=== PATIENT | female | born 1975 | race Caucasian/White ===

== ENCOUNTER 2023-11-11 00:42 | Inpatient (IN) ==
[2023-11-11 01:34] LABS: Albumin Globulin Ratio 1.1 (0.9-2); Albumin Level 3.1 gm/dl (3.4-5.0); BUN Creatinine Ratio 8.2 (10-20); Bilirubin,Total 0.7 mg/dl (0.2-1.0); Calcium 7.6 mg/dl (8.6-10.3); Creatinine Clr Calc Pharmacy 41.2 ml/min; Est GFR (Non-African American) 25.8 ml/min; Globulin 2.7 gm/dl (2.5-4.0); Potassium 3.9 mmol/L (3.5-5.1); Total Protein 5.8 gm/dl (6.0-8.3)
[2023-11-11 01:40] LABS: Troponin I High Sensitivity 20.4 pg/ml (0-14)
[2023-11-11 01:42] LABS: Hematocrit (blood only) 40.7 % (37.0-47.0); Hemoglobin 13.8 g/dl (12.0-16.0); Mean Corpuscular Hemoglobin 28.6 pg (25.0-34.0); Mean Corpuscular Hgb Conc 33.9 g/dL (32.0-36.0); Mean Corpuscular Volume 84.3 fL (80.0-100.0); Mean Platelet Volume 11.4 fL (9.4-12.4); Platelet Count 125 K/uL (130-400); RDW Coefficient of Variation 13.4 % (11.5-14.5); RDW Standard Deviation 41.4 fL (36.4-46.3); Red Blood Count 4.83 M/uL (4.20-5.40); White Blood Count 7.02 K/ul (4.8-10.8)
[2023-11-11 01:43] LABS: Basophils # (auto) 0.01 K/uL (0.00-0.20); Basophils % (auto) 0.1 %; Echinocytes 1+; Eosinophils # (auto) 0.01 K/uL (0.00-0.50); Eosinophils % (auto) 0.1 %; Immature Granulocytes # (auto) 0.04 K/uL (0.01-0.20); Immature Granulocytes % (auto) 0.6 %; Lymphocytes # (auto) 0.47 K/uL (1.20-3.40); Lymphocytes % (auto) 6.7 %; Monocytes # (auto) 1.01 K/uL (0.11-0.59); Monocytes % (auto) 14.4 %; Neutrophils # (auto) 5.48 K/uL (1.40-6.50); Neutrophils % (auto) 78.1 %; Toxic Vacuolation 1+
[2023-11-11 01:48] LABS: INR 1.1 (0.9-1.1); Partial Thromboplastin Ratio 1.3; Partial Thromboplastin Time 38 Seconds (21-31); Prothrombin Time 12.2 Seconds (9.0-12.0)
[2023-11-11] MEDS: FUROSEMIDE 40 MG/4 ML VIAL IV ONE (02:03)
[2023-11-11] MEDS: fentaNYL citrate PF 100 MCG/2 ML VIAL IV STA (02:38)
[2023-11-11] MEDS: MIDAZOLAM HCL 5 MG/ML 1 ML VIAL IV STA ×2 (02:38→03:59)
[2023-11-11] MEDS ORDERED: MIDAZOLAM HCL 5 MG/ML 2ML VIAL IV STA (02:52)
--- NOTE | 2023-11-11 02:52 | History & Physical Report ---
Date of Service November 11, 2023 Assessment & Plan (1) Admitted to intensive care unit: (2) Septic shock: (3) Acute hypotension: (4) Hepatitis B: (5) Renal insufficiency: (6) Acute respiratory failure with hypoxia and hypercapnia: (7) Endotracheally intubated: (8) NSTEMI (non-ST elevated myocardial infarction): (9) Hyponatremia: (10) Bilateral pneumonia: (11) Pulmonary edema: (12) Tobacco use disorder: Plan Acute respiratory failure with hypoxia and hypercapnia/septic shock due to likely pulmonary source- Admitted to intensive care unit after failure of BiPAP Endotracheal intubated in the ED due to respiratory failure Started on Levophed infusion due to hypotension, and given albumin 50 g IV x 1 Status post 1200 mL of IV fluids prehospital and in the ED due to hypotension Combination of bilateral pneumonia, possibly aspiration, with fluid overload Follow all cultures and sensitivities, including urine and blood ABG ordered and pending, follow serially Consult intensive care team Bilateral pneumonia- Place in on Zyvox 600 mg IV every 12 hours and Zosyn 4.5 g IV every 8 hours in the setting of renal insufficiency DuoNebs every 2 hours as needed Renal insufficiency- Creatinine 2.20 with unknown baseline Received 1200 mL of IV fluids prehospital and in hospital Likely an element of decreased perfusion secondary to hypotension Follow labs serially NSTEMI/fluid overload- Troponin 20.4 on admission, with no acute findings on EKG Follow-up troponins serially Order complete echocardiogram monitor for arrhythmias Status post furosemide 40 mg IV x 1 in the ED Hyponatremia- Sodium 123 Looks to be more related to fluid overload Check serum and urine osmolality Follow serially Tobacco use disorder- Significant usage as noted by during phone conversation with ED History of Present Illness Chief Complaint: The patient presented to the emergency department with ongoing shortness of breath over the past days to weeks, was noted to be worsening by staff, and presented to the ED for assessment. Primary Care Provider: NO PCP The patient is a 48-year-old female with unknown past medical history including hepatitis B, recent weight loss, and significant tobacco use disorder, who presents to the emergency department with worsening shortness of breath, dyspnea exertion and cough. She was noted to be hypotensive, and was given a liter of IV fluids, with improved blood pressures. In the emergency department she was initially noted to be septic appearing, was placed on BiPAP, given 200 mL of additional fluids, and the patient subsequently became hypotensive, hypoxic, and required emergent intubation. Chest x-ray shows significant bilateral infiltrates, with possible underlying malignancy, and fluid overload. Pressure emergency department did drop to 71/50, and after receiving initial dosing of Levophed infusion, systolic blood pressure was maintained in the low 100s Past Med/Surg History Medical History (Updated 11/11/23 @ 03:38 by Neeraj Michael MD) Tobacco use disorder Hepatitis B Social History Smoking Status: Current every day smoker Tobacco Type: Cigarettes Feels Safe at Home: Yes Review of Systems Review of Systems: Review of systems and HPI not obtainable due to current medical state Physical Exam Physical Exam: The patient is sedated and intubated, well developed and well nourished, normocephalic and atraumatic, HEENT--PERRL, EOMI, mucous membranes and oropharynx dry. Neck--supple. No JVD. No bruits. Thyroid normal, trachea midline, no adenopathy. Heart--normal S1 and S2. No murmurs, rubs or gallops. Lungs--coarse breath sounds with crackles at the bases to senior living up bilaterally, worse on the left. Abdomen--normal bowel sounds and soft. Nontender. Nondistended, no hernias or masses, no organomegaly. Extremities--no cyanosis or clubbing. No edema. Dermatologic--normal skin turgor, normal color, no abnormal lymph nodes, no rash. Neurologic--cranial nerves II through XII grossly intact. Rheumatologic--normal range of motion. Psychiatric--normal affect. Results & Data Results & Data Vital Signs (Past 12 Hours) Vital Signs Temp Pulse Pulse Resp BP BP Pulse Ox 11/11/23 02:21 90 28 H 211/144 H 88 L 11/11/23 01:43 88 35 H 96 11/11/23 01:32 84 24 124/95 96 11/11/23 01:20 88 24 105/75 92 11/11/23 00:51 88 24 86/59 L 11/11/23 00:51 86 L 11/11/23 00:51 11/11/23 00:51 94 11/11/23 00:51 36.4 C L 84 24 86/59 L 94 O2 Del Method O2 Flow Rate FiO2 11/11/23 02:21 BiPAP 11/11/23 01:43 50 11/11/23 01:32 BiPAP 11/11/23 01:20 Nasal Cannula 5 11/11/23 00:51 11/11/23 00:51 Room Air 11/11/23 00:51 Nasal Cannula 5 11/11/23 00:51 Nasal Cannula 5 11/11/23 00:51 Nasal Cannula 5 Laboratory Results Laboratory Results WBC 7.02 K/ul (4.8-10.8) 11/11/23 00:57 RBC 4.83 M/uL (4.20-5.40) 11/11/23 00:57 Hgb 13.8 g/dl (12.0-16.0) 11/11/23 00:57 POC Hgb 15.3 g/dl (12.0-16.0) 11/11/23 03:08 Hct 40.7 % (37.0-47.0) 11/11/23 00:57 POC Hct 45 % (37-47) 11/11/23 03:08 MCV 84.3 fL (80.0-100.0) 11/11/23 00:57 MCH 28.6 pg (25.0-34.0) 11/11/23 00:57 MCHC 33.9 g/dL (32.0-36.0) 11/11/23 00:57 RDW Std Deviation 41.4 fL (36.4-46.3) 11/11/23 00:57 RDW Coeff of Keesha 13.4 % (11.5-14.5) 11/11/23 00:57 Plt Count 125 K/uL (130-400) L 11/11/23 00:57 MPV 11.4 fL (9.4-12.4) 11/11/23 00:57 Immature Gran % (Auto) 0.6 % 11/11/23 00:57 Neut % (Auto) 78.1 % 11/11/23 00:57 Lymph % (Auto) 6.7 % 11/11/23 00:57 Carlton % (Auto) 14.4 % 11/11/23 00:57 Eos % (Auto) 0.1 % 11/11/23 00:57 Baso % (Auto) 0.1 % 11/11/23 00:57 Neut # (Auto) 5.48 K/uL (1.40-6.50) 11/11/23 00:57 Lymph # (Auto) 0.47 K/uL (1.20-3.40) L 11/11/23 00:57 Carlton # (Auto) 1.01 K/uL (0.11-0.59) H 11/11/23 00:57 Eos # (Auto) 0.01 K/uL (0.00-0.50) 11/11/23 00:57 Baso # (Auto) 0.01 K/uL (0.00-0.20) 11/11/23 00:57 Immature Gran # (Auto) 0.04 K/uL (0.01-0.20) 11/11/23 00:57 Toxic Vacuolation 1+ 11/11/23 00:57 Echinocytes 1+ 11/11/23 00:57 PT 12.2 Seconds (9.0-12.0) H 11/11/23 00:57 INR 1.1 (0.9-1.1) 11/11/23 00:57 APTT 38 Seconds (21-31) H 11/11/23 00:57 PTT Ratio 1.3 11/11/23 00:57 POC pH 7.20 (7.35-7.45) L 11/11/23 03:08 POC pCO2 61 mmHg (35-46) H 11/11/23 03:08 POC pO2 91 mmHg (80-95) 11/11/23 03:08 POC HCO3 24 faustino/L (19-24) 11/11/23 03:08 POC Total CO2 26 mmol/L (24-31) 11/11/23 03:08 POC Base Excess -4.0 faustino/L (-9-1.8) 11/11/23 03:08 POC ABG O2 Sat 95.0 % (90-95) 11/11/23 03:08 POC Sodium 123 mmol/L (135-144) L 11/11/23 03:08 Sodium 123 mmol/L (136-145) L 11/11/23 00:57 POC Potassium 4.6 mmol/L (3.3-5.0) 11/11/23 03:08 Potassium 3.9 mmol/L (3.5-5.1) 11/11/23 00:57 Chloride 89 mmol/L (98-107) L 11/11/23 00:57 Carbon Dioxide 24 mmol/L (21-32) 11/11/23 00:57 Anion Gap 10 (3-11) 11/11/23 00:57 BUN 18 mg/dl (6-23) 11/11/23 00:57 Creatinine 2.20 mg/dl (0.6-1.2) H 11/11/23 00:57 Est Cr Clr Drug Dosing 41.2 ml/min 11/11/23 00:57 Est GFR ( Amer) 30.0 ml/min 11/11/23 00:57 Est GFR (Non-Af Amer) 25.8 ml/min 11/11/23 00:57 BUN/Creatinine Ratio 8.2 (10-20) L 11/11/23 00:57 Glucose 110 mg/dl (70-99(Fasting)) H 11/11/23 00:57 Calcium 7.6 mg/dl (8.6-10.3) L 11/11/23 00:57 Total Bilirubin 0.7 mg/dl (0.2-1.0) 11/11/23 00:57 AST 36 U/L (13-39) 11/11/23 00:57 ALT 21 U/L (7-52) 11/11/23 00:57 Alkaline Phosphatase 41 U/L (34-104) 11/11/23 00:57 Troponin I High Sens 20.4 pg/ml (0-14) H 11/11/23 00:57 Total Protein 5.8 gm/dl (6.0-8.3) L 11/11/23 00:57 Albumin 3.1 gm/dl (3.4-5.0) L 11/11/23 00:57 Globulin 2.7 gm/dl (2.5-4.0) 11/11/23 00:57 Albumin/Globulin Ratio 1.1 (0.9-2) 11/11/23 00:57 Lipase 6 U/L (11-82) L 11/11/23 00:57 Code Status & VTE Plan Code Status Full code VTE Prophylaxis Plan VTE Prophylaxis will be ordered: Yes Critical Care Time 50 minutes PG Care Time/CCT Total # of Minutes Spent Total Time Spent with Patient: Total time spent is greater than 50% in coordination of care (as documented) at patient's floor/unit and/or counseling patient: Coding Level of Care Code 30387 INT INP/OBS CARE 3MIN Diagnoses Admitted to intensive care unit Z78.9 Septic shock A41.9; R65.21 Acute hypotension I95.9 Hepatitis B B19.10 Renal insufficiency N28.9 Acute respiratory failure with hypoxia and hypercapnia J96.01; J96.02 Endotracheally intubated Z97.8 NSTEMI (non-ST elevated myocardial infarction) I21.4 Hyponatremia E87.1 Bilateral pneumonia J18.9 Pulmonary edema J81.1 Tobacco use disorder F17.200
[2023-11-11] MEDS ORDERED: STAT IV Infusion **Titration per Protocol STA ×4 (02:54→08:01)
[2023-11-11] MEDS: NOREPINEPHRINE/D5W 4 MG/250 ML IV ONE (02:59)
[2023-11-11] MEDS: NOREPINEPHRINE/D5W 4 MG/250 ML PLCT IV SCH (03:00)
[2023-11-11] MEDS ORDERED: MIDAZOLAM BOLUS FROM BAG IV PRN (03:11)
[2023-11-11 03:21] LABS: iSTAT Arterial Blood Gas HCO3 24 meg/L (19-24); iSTAT Arterial Blood Gas pCO2 61 mmHg (35-46); iSTAT Arterial Blood Gas pO2 91 mmHg (80-95); iSTAT Carbon Dioxide 26 mmol/L (24-31); iSTAT Hematocrit 45 % (37-47); iSTAT Hemoglobin 15.3 g/dl (12.0-16.0); iSTAT Potassium 4.6 mmol/L (3.3-5.0); iSTAT Sodium 123 mmol/L (135-144)
[2023-11-11] MEDS: fentaNYL citrate 2,500 MCG/250 ML BAG IV SCH (03:32)
[2023-11-11] MEDS: fentaNYL BOLUS from BAG IV PRN (03:39)
--- NOTE | 2023-11-11 03:46 | Billing Data ---
Date of Service November 11, 2023 Coding Level of Care Code 66040 CRITICAL CARE
[2023-11-11 04:11] LABS: Appearance Urine Cloudy (Clear); Bilirubin Urine Negative (Negative); Blood Urine 3+ (Negative); Color Urine Dark Yellow; Glucose Urine UA Negative (Negative); Ketones Urine Negative (Negative); Leukocyte Esterase Urine Negative (Negative); Nitrite Urine Negative (Negative); Protein Urine 2+ (Negative); Specific Gravity Urine 1.012 (1.000-1.030); Urobilinogen Urine Negative (Negative)
[2023-11-11 04:31] LABS: Creatinine Urine Random 80.8 mg/dl
[2023-11-11 04:32] LABS: Amphetamines+Metham, Urine Neg (Neg); Barbiturates, Urine Neg (Neg); Benzodiazepine, Urine Neg (Neg); Cocaine, Urine Neg (Neg); MDMA (Ecstacy), Urine Neg (Neg); Marijuana, Urine Neg (Neg); Methadone, Urine Neg (Neg); Opiate, Urine Neg (Neg); Phencyclidine, Urine Neg (Neg)
[2023-11-11] MEDS ORDERED: ALBUT/IPRATROP 3MG/0.5MG NEB 3 ML VIAL NEB PRN (04:38)
[2023-11-11] MEDS ORDERED: ONDANSETRON INJ 2 MG/ML 2 ML VIAL IV PRN (04:38)
[2023-11-11] MEDS: OPTIRAY 320 125ml IV ONE (04:52)
[2023-11-11] MEDS: MIDAZOLAM HCL 125 MG/250 ML BAG IV SCH (04:55)
[2023-11-11 04:56] LABS: Adenovirus PCR Not Detected (NotDetected); Bordetella parapertussis PCR Not Detected (NotDetected); Bordetella pertussis PCR Not Detected (NotDetected); Chlamydia pneumoniae PCR Not Detected (NotDetected); Coronavirus 229E PCR Not Detected (NotDetected); Coronavirus CoV-2 (COVID19)PCR Not Detected (NotDetected); Coronavirus HKU1 PCR Not Detected (NotDetected); Coronavirus NL63 PCR Not Detected (NotDetected); Coronavirus OC43PCR Not Detected (NotDetected); Human Metapneumovirus PCR Not Detected (NotDetected); Influenza A (H1 2009) PCR DETECTED (NotDetected); Influenza B PCR Not Detected (NotDetected); Mycoplasma pneumoniae PCR Not Detected (NotDetected); Parainfluenza Virus 1 PCR Not Detected (NotDetected); Parainfluenza Virus 2 PCR Not Detected (NotDetected); Parainfluenza Virus 3 PCR Not Detected (NotDetected); Parainfluenza Virus 4 PCR Not Detected (NotDetected); Respiratory Syncytial VirusPCR Not Detected (NotDetected); Rhinovirus/Enterovirus PCR Not Detected (NotDetected)
[2023-11-11 05:06] LABS: Epithelial Cell Urine Auto 0-5 /lpf (0-5); RBC Urine Automated 0-4 /hpf (0-4)
[2023-11-11 05:07] LABS: Amorphous Sediment Urine Present (None Prsent); Bacteria Urine Automated 1+ (Negative)
--- NOTE | 2023-11-11 06:33 | Emergency Department Note ---
Impression & Plan Respiratory failure, Acute non-ST elevation myocardial infarction (NSTEMI), YAHAIRA (acute kidney injury), Acute hyponatremia, Pneumonia Admit to the ICU ED Provider Note NAME: MARIA ANTONIA SAAB AGE: 48 SEX: Female INFORMANT: Patient ED PROVIDER(S): Francia Sung DO CHIEF COMPLAINT: Chest pain PLAN: Disposition: Admit to the ICU MEDICAL DECISION MAKING: This is a 48-year-old female patient with a history of extensive mental health issues who presents to the emergency department from the [facility] with chest pain. She denies any cardiac history. She presented to EMS with significant hypotension and was bolused with IV normal saline solution which brought her blood pressure up upon arrival here in the emergency department. After being here for just a short period of time, the patient became hypoxic with what sounded like audible rails. She became quite anxious. She was placed on BiPAP at that time which she tolerated well. O2 saturations were stable and blood pressure remained acceptable. Laboratory studies revealed a significantly low white blood cell count 1.7. H&H were stable. Sodium was low at 122. BUN of 26 and creatinine of 2.1. We have no previous labs to compare to. Glucose was 209. Troponin was elevated at 46. Patient was ordered to have [employer] testing performed. Unfortunately, the patient's respiratory status began to decline and she became quite anxious. O2 saturations were low on the BiPAP and the decision was made to intubate. Patient received RSI with etomidate and succinylcholine and easily intubated. O2 saturations postprocedure were 100%. Postintubation x-ray showed the tube was at the pauly and required it to be pulled back slightly. The case has been discussed with the ICU team and the [facility]. Because of high acuity throughout the entire emergency department, the ICU providers and [facility] took over care of this patient. Care/management discussed with: [facility] and staff from the ICU as well as the patient's by phone Triage Nursing notes: reviewed and agree with them. Vital Signs: reviewed and remarkable for hypoxia Additional History obtained from: Patient's who I spoke with on the phone Differential Diagnosis: Cardiac ischemia, STEMI, NSTEMI, congestive heart failure, pneumonia, overdose, medication side effect Diagnostics, independently interpreted by me: ECG: Normal sinus rhythm at a rate of [address] segment elevation or signs of ischemia. There is no ectopy. QTc is 456 ms. Cardiac Monitoring: Normal sinus rhythm at 88 Imaging studies: Portable chest x-ray: As per my independent interpretation- multiple airspace opacities with significant pulmonary vascular congestion. There are also possible lesions noted about the lungs concerning for malignancy. Postintubation x-ray: Airspace opacities present with the endotracheal tube at the pauly. The tube was pulled back by 3 cm. HPI: 48 year old Female arrives for evaluation of chest pain. Patient is on a 302 at the [facility]. According to EMS and the patient, she has been having chest pain intermittently for the past couple of days which got much worse tonight. Upon EMS arrival at their facility, the patient was noted to be significantly hypotensive with blood pressures in the 60s and 70s systolically. They administered a bolus of IV normal saline solution-700 and mL which brought her blood pressure up to 107 systolically. Patient stated that the chest pain actually felt better. PAST MEDICAL HISTORY: Tobacco abuse, delusional thought disorder, chronic back pain, significant weight loss according to the SOCIAL HISTORY: Patient lives in [place] with her , he describes that she smokes 2 cartons of cigarettes per week HOME MEDICATIONS: See list ALLERGIES: See list VITALS: See Below PHYSICAL EXAMINATION: HEENT: Head - normocephalic and atraumatic. Pupils are equal, round, and reactive to light. Extraocular eye muscles are intact, and sclera are anicteric. Nose - moist nasal mucosa without discharge. Mouth -extremely dry buccal mucosa. Oropharynx is nonerythematous and there is no tonsillar exudate or edema noted. Neck: Supple; no obvious JVD. Heart: Regular rate and rhythm. There is a normal S1 and S2 with no murmurs, clicks, or gallops appreciated. Lungs: Clear to auscultation bilaterally with no wheezes, rales, or rhonchi. Abdomen: Soft, completely nontender, nondistended, with good bowel sounds. There are no palpable pulsatile masses or hepatosplenomegaly. There is no guarding, rigidity, or rebound noted. Extremities: No evidence of cyanosis, clubbing, or edema. There are easily palpable peripheral pulses. Skin: Cool, pale, and diaphoretic with good turgor and no rashes. PROCEDURES: Endotracheal Intubation Indication: Respiratory failure. The patient was on 100% oxygen via NRB prior to the procedure. Suction, airway equipment, RSI drugs, respiratory equipment, and appropriate personnel were prepared prior to the initiation of the procedure. A time out was taken. Induction was performed with etomidate and succinylcholine. After observing the clinical benefit of the medications, the airway was easily visualized utilizing a glide scope. A 7.5 size ETT tube was placed atraumatically to 25 cm using standard technique. The cuff inflated without signs of malfunction. There were bilateral breath sounds, positive colormetric change, no gastric sounds, and post procedure pulse oximetry was 100% %. Post intubation sedation was administered using Versed and fentanyl. There were no complications. Emergency department course: The patient was evaluated in room C-1. A complete history and physical was performed. Report was received from EMS. Laboratory studies were drawn as above. An order was placed for continuous cardiac monitoring. Patient was in a normal sinus rhythm at a rate of 88. A twelve- lead EKG was obtained. Portable chest x-ray was performed. The patient began to have significant respiratory distress and hypoxia. She was placed on BiPAP which she tolerated well. Patient seemed more comfortable and was resting. I reviewed laboratory studies with the patient. Unfortunately, the patient became more hypoxic on the BiPAP and the decision was made to intubate her. I discussed the case with the patient's to review what her wishes might be as well as with the patient and they both agreed to place her on a ventilator. The patient continued to sound significantly fluid overloaded after receiving the 700 mL bolus of saline prehospital so she was given a dose of IV Lasix. RSI and endotracheal intubation were performed. Patient tolerated this procedure well. Postintubation films showed that the endotracheal tube needed to be pulled back and it was. Patient was able to be oxygenated. Postintubation sedation was performed using Versed and fentanyl as I was wary of the patient's previous episodes of hypotension. I discussed the case with the ICU team as well as Dr. Kitchen. I kept the patient's abreast of the situation. I have personally spent greater than 130 minutes of critical care time in the direct management of this patient. This includes bedside care, interpretation of diagnostic studies, and testing, discussion with consultants, patient, and family members, and other required patient management activities. This 130 minutes is in excess of all separately billable procedures. Past Med/Surg History Medical History (Updated 11/13/23 @ 14:25 by Francia Sung DO) Tobacco use disorder Hepatitis B Social History Smoking Status: Current every day smoker Tobacco Type: Cigarettes Cigarettes Per Day: 1 PPD; Current Living Situation: Other Current Living Situation Comment: [place] Feels Safe at Home: Yes Allergies Allergies Allergy/AdvReac Type Severity Reaction Status Date / Time egg Allergy Mild Rash Verified 11/11/23 06:45 erythromycin base Allergy Unknown Unknown Verified 11/11/23 05:11 turkey AdvReac Unknown Verified 11/11/23 06:46 Home Meds Home Medications Medication Instructions Recorded Confirmed albuterol sulfate 90 mcg/actuation 2 puff inhalation Q6H PRN 11/11/23 11/11/23 aerosol inhaler Shortness Of Breath Or Wheezing amoxicillin 875 mg-potassium 1 tab PO BID 11/11/23 11/11/23 clavulanate 125 mg tablet baclofen 10 mg tablet 10 mg PO DAILY PRN Stiff Muscles 11/11/23 11/11/23 calcium carbonate 1,000 mg PO TID PRN gastric 11/11/23 11/11/23 distress cholecalciferol (vitamin D3) 25 50 mcg PO QAM 11/11/23 11/11/23 mcg (1,000 unit) tablet dextromethorphan-guaifenesin 10 10 ml PO BID 11/11/23 11/11/23 mg-100 mg/5 mL oral syrup furosemide 20 mg tablet 0 mg PO QAM edema 11/11/23 11/11/23 haloperidol 10 mg tablet 10 mg PO BID PRN Psychosis 11/11/23 11/11/23 haloperidol 5 mg tablet See Rx Instructions .Route .COMPLEX 11/11/23 11/11/23 metoprolol succinate 25 mg 50 mg PO QAM HTN 11/11/23 11/11/23 tablet,extended release 24 hr naproxen 500 mg tablet 500 mg PO BID PRN Pain 11/11/23 11/11/23 nicotine (polacrilex) 2 mg gum 4 mg buccal 6XD PRN Smoking 11/11/23 11/11/23 Cessation oxcarbazepine 150 mg tablet See Rx Instructions .Route .COMPLEX 11/11/23 11/11/23 (Trileptal) oxcarbazepine 300 mg tablet See Rx Instructions .Route 11/11/23 11/11/23 (Trileptal) .COMPLEX mood potassium chloride 10 mEq 20 meq PO QAM For Lasix Use 11/11/23 11/11/23 tablet,extended release pseudoephedrine HCl 30 mg tablet 60 mg PO BID PRN Congestion 11/11/23 11/11/23 (Sudafed) sennosides 8.6 mg tablet (Senokot) 8.6 mg PO DAILY PRN Constipation 11/11/23 11/11/23 Results & Data (ED) Vital Signs Vital Signs - 24 hr 11/11/23 00:50 11/11/23 00:51 11/11/23 00:51 Temperature 36.4 C L Temperature Source Oral Pulse Rate 84 84 Pulse Rate [Apical] Pulse Rhythm [Apical] Pulse Strength [Apical] Respiratory Rate 24 Respiratory Effort / Characteristics Labored Respiratory Depth Normal Respiratory Pattern Regular Blood Pressure 86/59 L Blood Pressure [Right Arm] Blood Pressure Mean 68 Blood Pressure Mean [Right Arm] Pulse Oximetry 94 94 Oxygen Delivery Method Nasal Cannula Nasal Cannula Oxygen Flow Rate 5 5 Fraction of Inspired Oxygen Sepsis Recent Fever Within 48 Hours No Sepsis New/Unexplained Change in Mental Status No Sepsis Action Taken by Nursing Physician Notified Oxygen Flow Rate - Titration Pulse Oximetry Post Tiitration 11/11/23 00:51 11/11/23 00:51 11/11/23 00:51 Temperature Temperature Source Pulse Rate Pulse Rate [Apical] 88 Pulse Rhythm [Apical] Regular Pulse Strength [Apical] Normal Respiratory Rate 24 Respiratory Effort / Characteristics Labored Labored Respiratory Depth Normal Normal Respiratory Pattern Regular Regular Blood Pressure Blood Pressure [Right Arm] 86/59 L Blood Pressure Mean Blood Pressure Mean [Right Arm] 68 Pulse Oximetry 86 L Oxygen Delivery Method Nasal Cannula Room Air Oxygen Flow Rate 5 Fraction of Inspired Oxygen Sepsis Recent Fever Within 48 Hours Sepsis New/Unexplained Change in Mental Status Sepsis Action Taken by Nursing Oxygen Flow Rate - Titration 5 Pulse Oximetry Post Tiitration 94 11/11/23 01:20 11/11/23 01:32 11/11/23 01:43 Temperature Temperature Source Pulse Rate 88 Pulse Rate [Apical] 88 84 Pulse Rhythm [Apical] Regular Regular Pulse Strength [Apical] Respiratory Rate 24 24 35 H Respiratory Effort / Characteristics Labored Spontaneous Labored Respiratory Depth Normal Normal Normal Respiratory Pattern Regular Blood Pressure Blood Pressure [Right Arm] 105/75 124/95 Blood Pressure Mean Blood Pressure Mean [Right Arm] 85 104 Pulse Oximetry 92 96 96 Oxygen Delivery Method Nasal Cannula BiPAP Oxygen Flow Rate 5 Fraction of Inspired Oxygen 50 Sepsis Recent Fever Within 48 Hours Sepsis New/Unexplained Change in Mental Status Sepsis Action Taken by Nursing Oxygen Flow Rate - Titration Pulse Oximetry Post Tiitration 11/11/23 02:21 Temperature Temperature Source Pulse Rate Pulse Rate [Apical] 90 Pulse Rhythm [Apical] Pulse Strength [Apical] Respiratory Rate 28 H Respiratory Effort / Characteristics Respiratory Depth Respiratory Pattern Blood Pressure Blood Pressure [Right Arm] 211/144 H Blood Pressure Mean Blood Pressure Mean [Right Arm] 166 Pulse Oximetry 88 L Oxygen Delivery Method BiPAP Oxygen Flow Rate Fraction of Inspired Oxygen Sepsis Recent Fever Within 48 Hours Sepsis New/Unexplained Change in Mental Status Sepsis Action Taken by Nursing Oxygen Flow Rate - Titration Pulse Oximetry Post Tiitration Laboratory Data 11/11/23 06:02 11/11/23 10:50 Lab Results 11/11/23 11/11/23 Range/Units 00:57 02:30 WBC 7.02 (4.8-10.8) K/ul RBC 4.83 (4.20-5.40) M/uL Hgb 13.8 (12.0-16.0) g/dl Hct 40.7 (37.0-47.0) % MCV 84.3 (80.0-100.0) fL MCH 28.6 (25.0-34.0) pg MCHC 33.9 (32.0-36.0) g/dL RDW Std Deviation 41.4 (36.4-46.3) fL RDW Coeff of Keesha 13.4 (11.5-14.5) % Plt Count 125 L (130-400) K/uL MPV 11.4 (9.4-12.4) fL Immature Gran % (Auto) 0.6 % Neut % (Auto) 78.1 % Lymph % (Auto) 6.7 % [place] % (Auto) 14.4 % Eos % (Auto) 0.1 % Baso % (Auto) 0.1 % Neut # (Auto) 5.48 (1.40-6.50) K/uL Lymph # (Auto) 0.47 L (1.20-3.40) K/uL [place] # (Auto) 1.01 H (0.11-0.59) K/uL Eos # (Auto) 0.01 (0.00-0.50) K/uL Baso # (Auto) 0.01 (0.00-0.20) K/uL Immature Gran # (Auto) 0.04 (0.01-0.20) K/uL Toxic Vacuolation 1+ Echinocytes 1+ PT 12.2 H (9.0-12.0) Seconds INR 1.1 (0.9-1.1) APTT 38 H (21-31) Seconds PTT Ratio 1.3 Sodium 123 L (136-145) mmol/L Potassium 3.9 (3.5-5.1) mmol/L Chloride 89 L (98-107) mmol/L Carbon Dioxide 24 (21-32) mmol/L Anion Gap 10 (3-11) BUN 18 (6-23) mg/dl Creatinine 2.20 H (0.6-1.2) mg/dl Est Cr Clr Drug Dosing 41.2 ml/min Est GFR ( Amer) 30.0 ml/min Est GFR (Non-Af Amer) 25.8 ml/min BUN/Creatinine Ratio 8.2 L (10-20) Glucose 110 H (70-99(Fasting)) mg/dl Calcium 7.6 L (8.6-10.3) mg/dl Total Bilirubin 0.7 (0.2-1.0) mg/dl AST 36 (13-39) U/L ALT 21 (7-52) U/L Alkaline Phosphatase 41 (34-104) U/L Troponin I High Sens 20.4 H (0-14) pg/ml Total Protein 5.8 L (6.0-8.3) gm/dl Albumin 3.1 L (3.4-5.0) gm/dl Globulin 2.7 (2.5-4.0) gm/dl Albumin/Globulin Ratio 1.1 (0.9-2) Lipase 6 L (11-82) U/L Urine Color Dark Yellow Urine Appearance Cloudy A (Clear) Urine pH 5.0 (4.5-7.5) Ur Specific [place] 1.012 (1.000-1.030) Urine Protein 2+ H (Negative) Urine Glucose (UA) Negative (Negative) Urine Ketones Negative (Negative) Urine Blood 3+ H (Negative) Urine Nitrite Negative (Negative) Urine Bilirubin Negative (Negative) Urine Urobilinogen Negative (Negative) Ur Leukocyte Esterase Negative (Negative) Urine WBC (Auto) 1-5 (0-5) /hpf Urine RBC (Auto) 0-4 (0-4) /hpf U Hyaline Cast (Auto) 1-5 (0-5) /lpf U Epithel Cells (Auto) 0-5 (0-5) /lpf Urine Bacteria (Auto) 1+ H (Negative) Amorphous Sediment Present A (None Prsent) Ur Random Creatinine 80.8 mg/dl Ur Random Sodium 54 mmol/L Nasal Influ A H1 2008 PCR DETECTED A (NotDetected) Urine Opiates Screen Neg (Neg) Ur Methadone, Qual Neg (Neg) Urine Barbiturates Neg (Neg) Ur Phencyclidine (PCP) Neg (Neg) U Amphetamin/Meth Scrn Neg (Neg) MDMA (Ecstasy) Screen Neg (Neg) U Benzodiazepines Scrn Neg (Neg) Ur Cocaine Metabolite Neg (Neg) U Marijuana (THC) Screen Neg (Neg) Adenovirus (PCR) Not Detected (NotDetected) B. pertussis DNA (PCR) Not Detected (NotDetected) B.parapertussis DNA PCR Not Detected (NotDetected) C. pneumoniae DNA (PCR) Not Detected (NotDetected) Coronavirus OC43 (PCR) Not Detected (NotDetected) Coronavirus HKU1 (PCR) Not Detected (NotDetected) Coronavirus 229E (PCR) Not Detected (NotDetected) SARS-CoV-2 (PCR) Not Detected (NotDetected) Coronavirus NL63 (PCR) Not Detected (NotDetected) Human Metapneumovir PCR Not Detected (NotDetected) Influenza Type B (PCR) Not Detected (NotDetected) M. pneumoniae (PCR) Not Detected (NotDetected) Parainfluenza 1 (PCR) Not Detected (NotDetected) Parainfluenza 2 (PCR) Not Detected (NotDetected) Parainfluenza 3 (PCR) Not Detected (NotDetected) Parainfluenza 4 (PCR) Not Detected (NotDetected) RSV (PCR) Not Detected (NotDetected) Entero/Rhino (PCR) Not Detected (NotDetected) Administered Medications Discontinued Medications Acetaminophen (Acetaminophen 1000 Mg/100 Ml Iv) 1,000 mg IV Q8H PRN PRN Reason: Pain or Fever Stop: 11/14/23 04:37 Last Admin: 11/11/23 14:47 Dose: 1,000 mg Documented By: Admin: 11/11/23 06:59 Dose: 1,000 mg Documented By: MARIA ISABEL Cisatracurium Besylate (Cisatracurium Bolus From Bag) 6.9 mg IV ONCE STA Stop: 11/11/23 08:06 Last Admin: 11/11/23 08:21 Dose: 6.9 mg Documented By: ALBERTO Co-signed By: RAFFAELE Fentanyl Citrate (Fentanyl Citrate Pf 100 Mcg/2 Ml Vial) 50 mcg IV NOW STA Stop: 11/11/23 02:44 Last Admin: 11/11/23 02:38 Dose: 50 mcg Documented By: MARKUS Fentanyl Citrate (Fentanyl Bolus From Bag) 50 mcg IV Q60M PRN PRN Reason: Pain or Agitation Stop: 11/25/23 03:10 Last Admin: 11/11/23 07:54 Dose: 50 mcg Documented By: ALBERTO Co-signed By: EDILBERTO Admin: 11/11/23 03:39 Dose: 50 mcg Documented By: JESSICA Co-signed By: YAMILA Furosemide (Furosemide 40 Mg/4 Ml Vial) 40 mg IV ONE ONE Stop: 11/11/23 01:56 Last Admin: 11/11/23 02:03 Dose: 40 mg Documented By: HB Heparin Sodium (Porcine) (Heparin Sod 5,000 Unit/0.5 Ml Vial) 5,000 units SQ Q12 [facility] Stop: 12/11/23 08:59 Last Admin: 11/11/23 11:20 Dose: Not Given Documented By: ALBERTO Norepinephrine Bitartrate (Levophed/D5w) 4 mg in 250 mls @ 127.5 mls/hr IV .Q1H58M [facility]; Protocol Stop: 12/11/23 02:59 Last Admin: 11/11/23 14:09 Dose: 0.34 mcg/kg/min, 127.5 mls/hr Documented By: ALBERTO Co-signed By: EDILBERTO Titration: 11/11/23 14:09 Dose: Infused Documented By: WRS Co-signed By: JLM Titration: 11/11/23 14:03 Dose: 0.34 mcg/kg/min, 127.5 mls/hr Documented By: Titration: 11/11/23 13:50 Dose: 0.32 mcg/kg/min, 120 mls/hr Documented By: Admin: 11/11/23 11:57 Dose: 0.3 mcg/kg/min, 112.5 mls/hr Documented By: WRS Co-signed By: LAF Titration: 11/11/23 11:57 Dose: Infused Documented By: WRS Co-signed By: LAF Titration: 11/11/23 10:36 Dose: 0.3 mcg/kg/min, 112.5 mls/hr Documented By: Titration: 11/11/23 10:11 Dose: 0.28 mcg/kg/min, 105 mls/hr Documented By: Admin: 11/11/23 10:05 Dose: 0.3 mcg/kg/min, 112.5 mls/hr Documented By: WRS Co-signed By: MTP Titration: 11/11/23 10:05 Dose: Infused Documented By: WRS Co-signed By: MTP Titration: 11/11/23 09:41 Dose: 0.3 mcg/kg/min, 112.5 mls/hr Documented By: Titration: 11/11/23 09:11 Dose: 0.28 mcg/kg/min, 105 mls/hr Documented By: Titration: 11/11/23 09:00 Dose: 0.26 mcg/kg/min, 97.5 mls/hr Documented By: Titration: 11/11/23 08:54 Dose: 0.24 mcg/kg/min, 90 mls/hr Documented By: Titration: 11/11/23 08:44 Dose: 0 mcg/kg/min, 0.2 mls/hr Documented By: Titration: 11/11/23 08:40 Dose: 0.18 mcg/kg/min, 67.5 mls/hr Documented By: Titration: 11/11/23 08:00 Dose: 0.16 mcg/kg/min, 60 mls/hr Documented By: Titration: 11/11/23 07:18 Dose: 0.14 mcg/kg/min, 52.5 mls/hr Documented By: CLC Co-signed By: WRS Admin: 11/11/23 07:05 Dose: 0.14 mcg/kg/min, 52.5 mls/hr Documented By: MARIA ISABEL Co-signed By: PAH Titration: 11/11/23 07:05 Dose: Infused Documented By: ELS Co-signed By: PAH Titration: 11/11/23 07:03 Dose: 0.14 mcg/kg/min, 52.5 mls/hr Documented By: ELS Co-signed By: PAH Titration: 11/11/23 04:06 Dose: 0.16 mcg/kg/min, 60 mls/hr Documented By: Titration: 11/11/23 03:51 Dose: 0.14 mcg/kg/min, 52.5 mls/hr Documented By: Titration: 11/11/23 03:27 Dose: 0.12 mcg/kg/min, 45 mls/hr Documented By: Admin: 11/11/23 03:00 Dose: 0.1 mcg/kg/min, 37.5 mls/hr Documented By: SHREYAW Co-signed By: YAMILA Albumin Human (Albumin 25%) 25 gm in 100 mls @ 50 mls/hr IV Q2H [facility] Stop: 11/11/23 06:59 Last Admin: 11/11/23 07:16 Dose: Not Given Documented By: Admin: 11/11/23 07:16 Dose: Not Given Documented By: CLC Midazolam HCl (Versed) 125 mg in 250 mls @ 5 mls/hr IV .Q50H [facility]; Protocol Stop: 12/11/23 03:14 Last Titration: 11/11/23 08:23 Dose: 2.5 mg/hr, 5 mls/hr Documented By: WRS Co-signed By: AJB Titration: 11/11/23 07:18 Dose: 2 mg/hr, 4 mls/hr Documented By: CLC Co-signed By: WRS Titration: 11/11/23 07:04 Dose: 2 mg/hr, 4 mls/hr Documented By: ELS Co-signed By: PAH Titration: 11/11/23 05:55 Dose: 1.5 mg/hr, 3 mls/hr Documented By: ELS Co-signed By: PAH Admin: 11/11/23 04:55 Dose: 1 mg/hr, 2 mls/hr Documented By: MARIA ISABEL Co-signed By: JUAN PABLO Fentanyl Citrate (Fentanyl Citrate) 2,500 mcg in 250 mls @ 7.5 mls/hr IV .[id number] [facility]; Protocol Stop: 11/25/23 03:14 Last Titration: 11/11/23 10:11 Dose: 75 mcg/hr, 7.5 mls/hr Documented By: ALBERTO Co-signed By: LAF Titration: 11/11/23 08:23 Dose: 100 mcg/hr, 10 mls/hr Documented By: ALBERTO Co-signed By: AJB Titration: 11/11/23 07:18 Dose: 75 mcg/hr, 7.5 mls/hr Documented By: CLC Co-signed By: ALBERTO Titration: 11/11/23 05:50 Dose: 75 mcg/hr, 7.5 mls/hr Documented By: MARIA ISABEL Co-signed By: PAH Titration: 11/11/23 04:50 Dose: 50 mcg/hr, 5 mls/hr Documented By: MARIA ISABEL Co-signed By: PAH Admin: 11/11/23 03:32 Dose: 25 mcg/hr, 2.5 mls/hr Documented By: JESSICA Co-signed By: YAMILA Pantoprazole Sodium 40 mg/ (Syringe) 10 mls @ 5 mls/min IV DAILY@1100 [facility] Stop: 12/11/23 10:59 Last Admin: 11/11/23 11:27 Dose: 5 mls/min Documented By: ALBERTO Piperacillin Sod/Tazobactam (Sod 4.5 gm/ Dextrose) 100 mls @ 25 mls/hr IV Q8H [facility]; Protocol Stop: 11/18/23 09:59 Last Infusion: 11/11/23 13:47 Dose: Infused Documented By: Admin: 11/11/23 10:17 Dose: 25 mls/hr Documented By: ALBERTO Linezolid (Zyvox) 600 mg in 300 mls @ 300 mls/hr IV Q12H [facility] Stop: 11/18/23 04:59 Last Infusion: 11/11/23 07:44 Dose: Infused Documented By: Admin: 11/11/23 06:52 Dose: 300 mls/hr Documented By: MARIA ISABEL Piperacillin Sod/Tazobactam (Sod 4.5 gm/ Dextrose) 100 mls @ 200 mls/hr IV ONE ONE; Protocol Stop: 11/11/23 05:44 Last Infusion: 11/11/23 07:45 Dose: Infused Documented By: Admin: 11/11/23 06:55 Dose: 200 mls/hr Documented By: MARIA ISABEL Vasopressin 20 units/ Sodium (Chloride) 101 mls @ 12.12 mls/hr IV .Q8H20M [facility] Stop: 12/11/23 05:29 Last Admin: 11/11/23 13:02 Dose: 0.04 unit/min, 12.1 mls/hr Documented By: ALBERTO Co-signed By: EDILBERTO Infusion: 11/11/23 13:02 Dose: Infused Documented By: ALBERTO Co-signed By: EDILBERTO Infusion: 11/11/23 07:18 Dose: 0.04 unit/min, 12.1 mls/hr Documented By: CLC Co-signed By: ALBERTO Admin: 11/11/23 06:55 Dose: 0.04 unit/min, 12.1 mls/hr Documented By: MARIA ISABEL Co-signed By: JUAN PABLO Vancomycin HCl 2,000 mg/ (Sodium Chloride) 540 mls @ 200 mls/hr IV NOW ONE Stop: 11/11/23 09:56 Last Infusion: 11/11/23 10:39 Dose: Infused Documented By: Admin: 11/11/23 07:50 Dose: 200 mls/hr Documented By: ALBERTO Cisatracurium Besylate 40 mg/ (Dextrose) 100 mls @ 30.825 mls/hr IV .Q3H15M [facility]; Protocol Stop: 12/11/23 08:14 Last Admin: 11/11/23 15:14 Dose: 3 mcg/kg/min, 30.8 mls/hr Documented By: ALBERTO Co-signed By: EDILBERTO Titration: 11/11/23 15:14 Dose: Infused Documented By: ALBERTO Co-signed By: EDILBERTO Admin: 11/11/23 12:03 Dose: 3 mcg/kg/min, 30.8 mls/hr Documented By: ALBERTO Co-signed By: MARKELL Titration: 11/11/23 12:03 Dose: Infused Documented By: ALBERTO Co-signed By: LAF Titration: 11/11/23 11:40 Dose: 3 mcg/kg/min, 30.8 mls/hr Documented By: Titration: 11/11/23 09:59 Dose: 2 mcg/kg/min, 20.6 mls/hr Documented By: Admin: 11/11/23 08:19 Dose: 1 mcg/kg/min, 10.3 mls/hr Documented By: ALBERTO Co-signed By: RAFFAELE Lactated Ringer's (Lr) 2,000 mls @ 999 mls/hr IV .Q2H1M ONE Stop: 11/11/23 11:50 Last Infusion: 11/11/23 10:13 Dose: Infused Documented By: Admin: 11/11/23 09:52 Dose: 999 mls/hr Documented By: ALBERTO Insulin Aspart (Insulin Aspart Per Unit Charge) 0 units SC Q6 [facility] Stop: 12/11/23 08:59 Last Admin: 11/11/23 11:55 Dose: 2 units Documented By: ALBERTO Co-signed By: MARKELL Admin: 11/11/23 08:58 Dose: 3 units Documented By: ALBERTO Co-signed By: MTP Ioversol (Optiray 320 125ml) 115 ml IV ONCE ONE Stop: 11/11/23 04:53 Last Admin: 11/11/23 04:52 Dose: 115 ml Documented By: CHRISTOPHER Midazolam HCl (Midazolam Hcl 5 Mg/Ml 1 Ml Vial) 5 mg IV NOW STA Stop: 11/11/23 02:44 Last Admin: 11/11/23 02:38 Dose: 5 mg Documented By: MARKUS Midazolam HCl (Midazolam Hcl 5 Mg/Ml 1 Ml Vial) 5 mg IV NOW STA Stop: 11/11/23 03:56 Last Admin: 11/11/23 03:59 Dose: 5 mg Documented By: JESSICA Miscellaneous (Rapid Sequence Induction Bag) Confirm Administered Dose 1 each N/A .STK-MED ONE Stop: 11/11/23 02:25 Last Admin: 11/11/23 06:52 Dose: Not Given Documented By: MARIA ISABEL Chaseaneous (Icu Protocol For Hyperglycemia) 1 each N/A ACHS ROCKY Stop: 11/13/23 07:29 Last Admin: 11/11/23 08:38 Dose: Not Given Documented By: ALBERTO Multi-Ingredient Cream (Artificial Tears Op Oint 3.5 Gm Tube) 1 appln OP Q4H [facility] Stop: 12/11/23 08:14 Last Admin: 11/11/23 11:57 Dose: 1 appln Documented By: Admin: 11/11/23 08:31 Dose: 1 appln Documented By: ALBERTO Norepinephrine Bitartrate (Norepinephrine/D5w 4 Mg/250 Ml) Confirm Administered Dose 4 mg IV .STK-MED ONE Stop: 11/11/23 02:54 Last Admin: 11/11/23 02:59 Dose: Not Given Documented By: MARKUS Oseltamivir Phosphate (Oseltamivir Phosphate Susp 30 Mg/5 Ml Udp) 30 mg PO BID [facility] Stop: 11/16/23 10:59 Last Admin: 11/11/23 11:26 Dose: 30 mg Documented By: ALBERTO Propofol (Propofol Iv Emulsion 10 Mg/Ml 100 Ml Vial) Confirm Administered Dose 1,000 mg IV .STK-MED ONE Stop: 11/11/23 02:30 Last Admin: 11/11/23 06:52 Dose: Not Given Documented By: MARIA ISABEL Discharge Plan Visit Data Chief Complaint: Shortness of Breath/Dyspnea Stated Complaint: CHEST PAIN, SHORT OF BREATH, HTN ED Provider: Francia Sung Discharge Problem: Respiratory failure, Acute non-ST elevation myocardial infarction (NSTEMI), YAHAIRA (acute kidney injury), Acute hyponatremia, Pneumonia Patient Disposition: Admitted As Inpatient Discharge Instructions Interventions: ED Discharge Assessment Last Done: 11/11/23 03:59 Discharge Problem: Pneumonia Qualifiers: Pneumonia type: due to unspecified organism
[2023-11-11 06:40] LABS: Albumin Globulin Ratio 1.2 (0.9-2); Albumin Level 2.8 gm/dl (3.4-5.0); BUN Creatinine Ratio 10.4 (10-20); Calcium 7.1 mg/dl (8.6-10.3); Est GFR (African American) 29.8 ml/min; Est GFR (Non-African American) 25.7 ml/min; Globulin 2.3 gm/dl (2.5-4.0); Potassium 4.3 mmol/L (3.5-5.1); Total Protein 5.1 gm/dl (6.0-8.3)
[2023-11-11 06:46] LABS: Troponin I High Sensitivity 34.5 pg/ml (0-14)
--- NOTE | 2023-11-11 06:51 | Critical Care Consultation ---
Date of Consultation November 11, 2023 Assessment & Plan (1) Acute respiratory failure with hypoxia and hypercapnia: Reason Critically Ill: 48-year-old female admitted to ICU with acute hypoxic and hypercapnic respiratory failure with bilateral infiltrates on chest x-ray, currently requiring mechanical ventilation and vasopressor support. Neuro - Sedation: Propofol/fentanyl drips CT head Noncon pending read Cardiac - Shockunsure of etiology at this time but presuming sepsis as patient does have bilateral infiltrates noted on chest x-ray -Cannot rule out PE at this time, CTA chest currently pending read -Central venous catheter and A-line inserted. Currently requiring Levophed and vasopressin drips to maintain MAP greater than 65. Wean as tolerated -No ST elevation noted on EKG. Normal QTc. Troponin mildly elevated at 20, trend for now -Continue IV fluid resuscitation -TTE pending -Continuous monitor on telemetry Respiratory - Acute hypoxic and hypercapnic respiratory failurepatient not reported to have respiratory disease although she does smoke 2 cartons of cigarettes per week per report. Suspect underlying pneumonia given chest imaging. -Currently requiring mechanical ventilation. Patient continues to have poor PF ratio. Will continue to wean vent as tolerated -Follow-up repeat ABG - CTA chest pending -See ID treatment for pneumonia -DuoNeb as needed -Cannot rule out underlying heart failure at this time. TTE pending. Hold on diuresis given YAHAIRA and hypotension -Continue end-tidal CO2 and pulse ox monitoring GI - N.p.o. RENAL/LYTES - AKIcreatinine currently elevated at 2.1, no previous labs to compare baseline -Suspect this is likely prerenal in the setting of septic shock -Maintain MAP greater than 65 -Continue IV fluid resuscitation Hyponatremiainitial sodium 123. Unsure of etiology at this time. Urine studies and serum Osmo currently pending -Patient did receive 1 L NSS bolus. Will continue to trend BMPs for now. Consider hypernatremic solution if no improvement -Consult nephrology - Foleystrict I's and O's ENDO - No history of diabetes or thyroid disease. ICU hyperglycemic protocol HEME - H&H stable, coags within normal limits. Monitor routine CBC ID - Sepsissuspect pulmonary source. Although no leukocytosis or fevers. Chest x- ray with bilateral infiltrates. Procalcitonin and lactate currently pending -CTA chest, CT abdomen and pelvis, currently pending -Respiratory BioFire and culture pending -UA pending -Blood cultures pending -Nasal MRSA pending -Continue Zosyn, linezolid for now LINES/IV ACCESS - Right IJ CVC, left radial A-line DVT PROPHYLAXIS - SCDs, subcu heparin I have personally spent 50 minutes of critical care time in the direct management of this patient. This is a life/limb threatening event. This includes time spent evaluating patient, direct bedside care, chart review, placing orders, interpretation of diagnostic studies, discussion with consultants, patient, and family members, as well as other required patient management activities. This time is exclusive of all separately billable procedures, and teaching time and separate from and in addition to any other critical care service time. Thank you for allowing us to participate in the care of this patient. Please refer to my attending physician's documentation for any further recommendations. (2) Septic shock: (3) Hepatitis B: (4) Hyponatremia: Supervising Physician Co-Signing Physician Notes Patient seen and examined. MR cohen. Discussed with critical care ENOCH as well as bedside critical care nurse on multiple occasions and on multidisciplinary rounds. The patient has severe ARDS with a PF ratio currently of about 75. She has severe sepsis with septic shock requiring 2 vasopressor agents. Offending agent is likely influenza. Her random cortisol was high. She has been initiated on antimicrobial agents in the form of Vanco and Zosyn. Will add oseltamavir for influenza although the utility is somewhat unsure. She is currently paralyzed to facilitate ARDS ventilation. Will allow for permissive hypercapnia and try definitive PaO2 of 55. Early consultation with an ECMO center was obtained and they recommended trying to optimize her PEEP and see whether or not she would respond favorably. She did present in acute renal failure. She is at risk of decline of kidney function and if that were to occur, it is unlikely we could support renal replacement therapy here as she would likely require CRRT. Will see what her follow-up blood gas looks like. Currently on high-dose norepinephrine and vasopressin. Given high incidence of hypercoagulable state with H1 N1 influenza, will place her on high-dose subcu heparin. Continue aggressive sedation with fentanyl and Versed. Continue paralytics with cis atracurium currently. Patient's overall prognosis at this point time is severely guarded as the patient is at high risk of continued deterioration and potential . Family will be updated when available. Bedside echocardiogram did demonstrate a slight hyperdynamic LV however the IVC did appear to be dilated however noninvasive cardiac output monitoring indicated a 35% improvement with passive leg raise consistent with fluid responsiveness and she is responded favorably to an additional 2 L of crystalloid. Hold additional diuretics at this point time. Await Legionella urinary antigen although I suspect this is most likely all attributable to severe influenza. An additional 90 minutes of critical care time was spent in evaluation management of this patient. History of Present Illness Attending Physician: Neeraj Michael MD History of Present Illness Patient is a 48-year-old female with extensive psychiatric past medical history and tobacco abuse, currently undergoing inpatient psychiatric treatment at the [facility] who presents to the emergency department with complaints of shortness of breath and cough. Patient was noted to be hypotensive and was given 1 L crystalloid bolus which initially improved blood pressures but patient became hypoxic and was placed on BiPAP. Patient then became increasingly hypotensive and worsening hypoxia and respiratory distress, in which she was emergently intubated by the ED physician. She was started on Levophed drip. She was sent for CTA chest, CT abdomen and pelvis, and CT head which are currently pending. She is now being admitted to the ICU for further management at this time. Allergies Allergy/AdvReac Type Severity Reaction Status Date / Time egg Allergy Mild Rash Verified 11/11/23 06:45 erythromycin base Allergy Unknown Unknown Verified 11/11/23 05:11 turkey AdvReac Unknown Verified 11/11/23 06:46 Patient History Medical History (Updated 11/11/23 @ 06:33 by Francia Sung DO) Tobacco use disorder Hepatitis B Social History Smoking Status: Current every day smoker Tobacco Type: Cigarettes Cigarettes Per Day: 1 PPD; Current Living Situation: Other Current Living Situation Comment: [place] Feels Safe at Home: Yes Review of Systems Review of Systems: Unobtainable due to endotracheal tube Physical Exam Constitutional: + frail appearing and + mechanically valery tilated Eyes: PERRL, conjunctivae normal, anicteric sclerae ENMT: external ear and nose normal, oropharynx normal Neck: trachea midline, no thyromegaly Respiratory: Rhonchi auscultated bilaterally in all lung bean. Patient is mechanically ventilated with symmetrical chest wall movement. Cardiovascular: RRR, no murmur, no edema Heart Sounds: normal S1 and normal S2; no murmur Extremities: no edema Gastrointestinal (Abdomen): normal bowel sounds, soft, nontender, no hepatosplenomegaly Musculoskeletal: no cyanosis or clubbing, extremities motor strength 5/5 Skin: no rashes, warm and dry Neurologic: PERRL, EOMI, accommodation nl, no face palsy, no dysarthria Psychiatric: A+Ox3, euthymic affect Genitourinary: Indwelling Guajardo catheter present, urine yellow and clear Results & Data Results & Data Vital Signs (Past 12 Hours) Vital Signs Temp Pulse Pulse Resp BP BP Pulse Ox 11/11/23 05:13 84 31 H 91 11/11/23 03:35 97 H 31 H 148/91 H 93 11/11/23 03:30 93 H 30 H 131/81 95 11/11/23 03:27 92 H 35 H 108/85 96 11/11/23 03:22 90 35 H 96 11/11/23 03:21 90 30 H 97/80 L 97 11/11/23 03:16 88 35 H 111/79 96 11/11/23 03:11 87 35 H 113/72 92 11/11/23 03:02 88 29 H 91/62 L 95 11/11/23 02:21 90 28 H 211/144 H 88 L 11/11/23 01:43 88 35 H 96 11/11/23 01:32 84 24 124/95 96 11/11/23 01:20 88 24 105/75 92 11/11/23 00:51 88 24 86/59 L 11/11/23 00:51 86 L 11/11/23 00:51 11/11/23 00:51 94 11/11/23 00:51 36.4 C L 84 24 86/59 L 94 11/11/23 00:50 84 O2 Del Method O2 Flow Rate FiO2 11/11/23 05:13 90 11/11/23 03:35 Mechanical Vent 11/11/23 03:30 Mechanical Vent 11/11/23 03:27 Mechanical Vent 11/11/23 03:22 80 11/11/23 03:21 Mechanical Vent 11/11/23 03:16 Mechanical Vent 11/11/23 03:11 Mechanical Vent 11/11/23 03:02 Mechanical Vent 11/11/23 02:21 BiPAP 11/11/23 01:43 50 11/11/23 01:32 BiPAP 11/11/23 01:20 Nasal Cannula 5 11/11/23 00:51 11/11/23 00:51 Room Air 11/11/23 00:51 Nasal Cannula 5 11/11/23 00:51 Nasal Cannula 5 11/11/23 00:51 Nasal Cannula 5 11/11/23 00:50 Coding Level of Care Code 44319 CRITICAL CARE EA ADD 30M Diagnoses Acute respiratory failure with hypoxia and hypercapnia J96.01; J96.02 Septic shock A41.9; R65.21 Hepatitis B B19.10 Hyponatremia E87.1
[2023-11-11] MEDS: RAPID SEQUENCE INDUCTION BAG ONE (06:52)
[2023-11-11] MEDS: LINEZOLID 600 MG/300 ML BAG IV SCH (06:52)
[2023-11-11] MEDS: PROPOFOL IV EMULSION 10 MG/ML 100 ML VIAL IV ONE (06:52)
--- NOTE | 2023-11-11 06:52 | Procedure Note ---
Procedure Note Date of Service November 11, 2023 Note ARTERIAL LINE PROCEDURE NOTE: Procedure: Arterial Line Placement Attending: Dr. Farley Provider: DARLENE Mae Indication: Monitoring on Pressors Anesthesia: None Line placed emergently in the setting of septic shock requiring multi vasopressor support and need for continuous hemodynamic monitoring. A time-out was completed verifying correct patient, procedure, site, positioning, and implant(s) or special equipment if applicable. Allens test was performed to ensure adequate perfusion. Patients left wrist was prepped and draped in the usual sterile fashion. Ultrasound guidance was used to aid needle placement. A 20g Arrow arterial line was introduced into the left radial artery. Catheter was threaded, and the needle was removed with appropriate blood return. Good waveform was observed. The patient tolerated the procedure well. Confirmation of placement with ultrasound. Blood Loss: Minimal Complications: None Coding CPT Codes Tubes, Drains, and Vasc Access - Tubes, Drains, and Vasc Access: [id number] Arterial Cath/Cannulation Sampling/Monitoring/Transfusion ([id number]) [facility] – [place] Procedure Codes (Charges) Tubes, Drains, and Vasc Access Procedure 1: Tubes, Drains, and Vasc Access: [id number] Arterial Cath/Cannulation Sampling/Monitoring/Transfusion
[2023-11-11 06:55] LABS: Echinocytes 1+; Hematocrit (blood only) 40.9 % (37.0-47.0); Hemoglobin 14.1 g/dl (12.0-16.0); Immature Granulocytes # (auto) 0.01 K/uL (0.01-0.20); Immature Granulocytes % (auto) 0.6 %; Lymphocytes # (auto) 0.27 K/uL (1.20-3.40); Lymphocytes % (auto) 15.8 %; Mean Corpuscular Hemoglobin 28.5 pg (25.0-34.0); Mean Corpuscular Hgb Conc 34.5 g/dL (32.0-36.0); Mean Corpuscular Volume 82.6 fL (80.0-100.0); Mean Platelet Volume 12.1 fL (9.4-12.4); Monocytes # (auto) 0.25 K/uL (0.11-0.59); Monocytes % (auto) 14.6 %; Neutrophils # (auto) 1.18 K/uL (1.40-6.50); Platelet Count 150 K/uL (130-400); RDW Coefficient of Variation 13.5 % (11.5-14.5); RDW Standard Deviation 40.6 fL (36.4-46.3); Red Blood Count 4.95 M/uL (4.20-5.40); Toxic Vacuolation 1+; White Blood Count 1.71 K/ul (4.8-10.8)
[2023-11-11] MEDS: PIPERACILLIN/TAZOBACTAM 4.5 GM in DEXTROSE 5% MINI-B 100 ML IV ONE (06:55)
[2023-11-11] MEDS: VASOPRESSIN 20 UNITS in 0.9 % SODIUM CHLORIDE 100 ML IV SCH (06:55)
--- NOTE | 2023-11-11 06:57 | Procedure Note ---
Procedure Note Date of Service November 11, 2023 Note INTERNAL JUGULAR CENTRAL LINE PROCEDURE NOTE: Procedure: Internal Jugular Central Line Placement Attending: Dr. Farley Provider: DARLENE Mae Indication: Central Drug Administration, Poor Venous Access, Multiple Lab Draws Necessary, etc. Anesthesia: None Line placed emergently in the setting of shock requiring multi vasopressor support and need for central drug administration A time-out was completed verifying correct patient, procedure, site, positioning, and implants(s) or special equipment if applicable. Patients right neck was cleansed and draped in the typical sterile fashion using Chloraprep. The Internal Jugular Vein and Carotid Artery were identified using ultrasound. The superficial tissue was anesthetized using 3 mL of 1% lidocaine without epinephrine under direct visualization with the ultrasound. After adequate anesthetization was achieved, the Internal Jugular vein was cannulated under direct ultrasound guidance using an introducer needle on a syringe. Good venous blood return was maintained prior to removal of syringe from introducer needle. Using Seldinger Technique, a guide wire was advanced through the introducer needle without resistance. The introducer needle was removed and ultrasound images were obtained of the guide wire within the Internal Jugular Vein and saved to the patients medical record. A small incision was made in penetrating fashion at the guide wire insertion site utilizing an 11 blade scalpel. The dilator was advanced to the vessel without resistance. The dilator was exchanged for the triple lumen catheter which was advanced into the vessel without resistance. The guide wire was removed intact from the catheter without issue. Claves were placed on each catheter tip with confirmation of good blood flow from each lumen. Each port was easily flushed with sterile saline. The catheter was placed at 16 cm and sutured in place. BioPatch was applied to the catheter and a sterile Tegaderm dressing was applied over the catheter with careful attention to sterility. Patient tolerated procedure well. No immediate complications were met. Post procedure x-ray was completed, placement was appropriate and no pneumothorax was noted. Coding CPT Codes Tubes, Drains, and Vasc Access - Tubes, Drains, and Vasc Access: [id number] Insertion Of Non-tunneled Catheter Age 6 Yrs> ([id number]) [facility] – [place] Procedure Codes (Charges) Tubes, Drains, and Vasc Access Procedure 1: Tubes, Drains, and Vasc Access: [id number] Insertion Of Non-tunneled Catheter Age 6 Yrs>
[2023-11-11 06:58] LABS: INR 1.1 (0.9-1.1)
[2023-11-11] MEDS: ACETAMINOPHEN 1000 MG/100 ML IV IV PRN (06:59)
[2023-11-11 07:05] LABS: iSTAT Art Bld Gas pCO2 Correct 51 mmHg (35-46); iSTAT Arterial Blood Gas HCO3 22 meg/L (19-24); iSTAT Arterial Blood Gas pCO2 48 mmHg (35-46); iSTAT Arterial Blood Gas pH 7.26 (7.35-7.45); iSTAT Arterial Blood Gas pO2 62 mmHg (80-95); iSTAT Arterial Blood Gas pO2 C 69; iSTAT Carbon Dioxide 23 mmol/L (24-31); iSTAT FiO2 90 %; iSTAT Hematocrit 43 % (37-47); iSTAT Hemoglobin 14.6 g/dl (12.0-16.0); iSTAT Potassium 4.5 mmol/L (3.3-5.0); iSTAT Site Art Line; iSTAT Sodium 121 mmol/L (135-144)
[2023-11-11] MEDS ORDERED: VANCOMYCIN CONSULT ACTIVE PRN (07:09)
[2023-11-11] MEDS: ALBUMIN 25% 25 GM/100 ML VIAL IV SCH (07:16)
--- NOTE | 2023-11-11 07:24 | CT Scan Report ---
CT angio chest PE protocol CLINICAL HISTORY: PE TECHNIQUE: Multidetector row helical CT of the chest was performed with angiographic protocol. Vigil l and sagittal reformations were obtained. Coronal and sagittal MIPS were obtained from the axial marie a set and were submitted for review. Automated dose lowering techniques and/or adjustment according to patient size were utilized for this exam. CT DOSE: 3416.38 mGy.cm Comparison: Comparison is made to chest radiograph 11/11/2023 FINDINGS: Lungs and pleura: Multifocal airspace opacities are seen. Endotracheal tube terminates above the ana na bowel in the thoracic cavity. Against this background, no definite suspicious pulmonary nodules ar e seen. Heart and pericardium: Heart size is normal. No pericardial effusion. Vessels: No evidence of pulmonary embolism. Mediastinum and ermias: Subcentimeter lymph nodes are seen. Chest wall and lower neck: Unremarkable. Abdomen: For findings below the diaphragm, please refer to CT of the abdomen dated the same. Bones: Mild degenerative changes are seen. IMPRESSION: 1. No pulmonary embolus. 2. Multifocal airspace opacities compatible with pneumonia. Reactive mediastinal lymphadenopathy. ACT 112: Negative or not required by law. Electronically signed by: Prasanth Hernandez M.D. 11/11/2023 7:23 AM
--- NOTE | 2023-11-11 07:24 | CT Scan Report ---
CT head/brain wo con CLINICAL HISTORY: altered, intubated Technique: Contiguous axial CT images of the head were acquired from the base of the skull to the jefferson tarik without intravenous contrast administration. Images were viewed in brain, subdural and bone [facility] ws. Automated dose lowering techniques and/or adjustment according to patient size were utilized for this exam. Comparison: None available at the time of this dictation. Findings: The ventricles, basal cisterns, and cerebral sulci are normal. There is no acute intracranial hemorrh age or evidence of acute territorial infarction. Neither mass effect, shift of the midline structures , nor abnormal extra-axial fluid collections are shown. Imaged portions of the paranasal sinuses and mastoid air cells are clear. The orbits appear normal. There are no acute fractures of the calvaria or scalp swelling. Impression: No acute intracranial hemorrhage, no evidence of acute territorial infarction or other acute intracra nial disease process. ACT 112: Negative or not required by law. Electronically signed by: Prasanth Hernandez M.D. 11/11/2023 7:23 AM
--- NOTE | 2023-11-11 07:25 | Electrocardiogram Report ---
Test Reason : Blood Pressure : / mmHG Vent. Rate : 085 BPM Atrial Rate : 085 BPM P-R Int : 132 ms QRS Dur : 086 ms QT Int : 384 ms P-R-T Axes : 058 048 055 degrees QTc Int : 456 ms Normal sinus rhythm Normal ECG No previous ECGs available Confirmed by Baldemar Gutierrez ([id number]) on 11/11/2023 7:25:37 AM Referred By: REFERRED SELF Confirmed By:Baldemar Gutierrez
--- NOTE | 2023-11-11 07:26 | Electrocardiogram Report ---
Test Reason : Blood Pressure : / mmHG Vent. Rate : 100 BPM Atrial Rate : 100 BPM P-R Int : 164 ms QRS Dur : 088 ms QT Int : 362 ms P-R-T Axes : 080 -26 089 degrees QTc Int : 466 ms Normal sinus rhythm Biatrial enlargement Abnormal ECG When compared with ECG of 11-NOV-2023 00:49, No significant change was found Confirmed by Baldemar Gutierrez ([id number]) on 11/11/2023 7:25:59 AM Referred By: REFERRED SELF Confirmed By:Baldemar Gutierrez
--- NOTE | 2023-11-11 07:26 | CT Scan Report ---
CT abd pelvis IV con only CLINICAL HISTORY: altered, intubated TECHNIQUE: Helical axial images of the abdomen and pelvis were obtained and displayed. Automated dose lowering techniques and/or adjustment according to patient size were utilized for this exam. This e xam was performed with intravenous contrast. COMPARISON: None available at the time of this dictation. FINDINGS: Lower chest: For findings above the diaphragm, please see CT chest performed same day. Liver: Focal fatty changes are noted about the falciform ligament. Gallbladder and biliary tree: No calcified gallstones. Normal caliber wall. No intra- or extrahepatic biliary ductal dilation. Pancreas: Unremarkable, no focal lesions. Spleen: Unremarkable. Adrenals: Unremarkable. Kidneys and ureters: Unremarkable. Bladder: Guajardo catheter is seen. Reproductive organs: Unremarkable. Bowel: The appendix is normal. Lymph nodes Retroperitoneal: Unremarkable. Pelvic: Unremarkable. Mesenteric: Unremarkable. Peritoneum: Normal. Vessels: Unremarkable. Abdominal wall: Unremarkable. Bones: Degenerative changes in the visualized spine. IMPRESSION: No acute abnormalities are seen. Please see CT chest for findings of pneumonia. ACT 112: Negative or not required by law. Electronically signed by: Prasanth Hernandez M.D. 11/11/2023 7:25 AM
--- NOTE | 2023-11-11 07:49 | Communication Note ---
Date of Service: November 11, 2023 Patient was CTA chest negative for PE but did show multifocal airspace opacities consistent with pneumonia. CT abdomen and pelvis and CT head unremarkable. Bio fire did result positive influenza A. Patient is currently on multiple vasopressors with septic shock and poor PF ratio consistent with ARDS. I did speak with Dr. Vaca, deputy jailer at [facility] in regards to transfer for evaluation of ECMO. At this time recommendations were to maximize ventilator settings with PEEP and possible proning trial. If no improvement, instructed to contact later today for reevaluation of potential need for ECMO services. CRITICAL CARE TIME - I have personally spent 28 minutes of critical care time in the direct management of this patient. This is a life/limb threatening event. This includes time spent evaluating patient, direct bedside care, chart review, placing orders, interpretation of diagnostic studies, discussion with consultants, patient, and family members, as well as other required patient management activities. This time is exclusive of all separately billable procedures, and teaching time and separate from and in addition to any other critical care service time. Coding Level of Care Code 82783 CRITICAL CARE EA ADD 30M
[2023-11-11] MEDS: VANCOMYCIN HCL 2,000 MG in SODIUM CHLORIDE 0.9% 500 ML IV ONE (07:50)
[2023-11-11] MEDS ORDERED: STAT IV/IM STA (08:01)
[2023-11-11] MEDS: CISATRACURIUM BESYLATE 40 MG in DEXTROSE 5% 80 ML IV SCH (08:19)
[2023-11-11] MEDS: CISATRACURIUM BOLUS FROM BAG IV STA (08:21)
[2023-11-11] MEDS ORDERED: NovoLIN-R BOLUS FROM BAG IV ONE (08:30)
[2023-11-11] MEDS ORDERED: INSULIN REGULAR 250 UNITS in SODIUM CHLORIDE 0.9% 247.5 ML IV SCH (08:30)
[2023-11-11] MEDS: ARTIFICIAL TEARS OP OINT 3.5 GM TUBE OP SCH (08:31)
[2023-11-11] MEDS ORDERED: PHARMACY GLYCEMIC MGMT CONSULT PRN (08:33)
[2023-11-11] MEDS: ICU Protocol for HYPERglycemia SCH (08:38)
[2023-11-11] MEDS ORDERED: CARBOHYDRATES FOR HYPOGLYCEMIA PO PRN (08:43)
[2023-11-11] MEDS ORDERED: GLUCAGON FOR INJ 1 MG VIAL SQ PRN (08:43)
[2023-11-11] MEDS ORDERED: GLUCOSE 10 TAB/TUBE PO PRN (08:43)
[2023-11-11] MEDS ORDERED: GLUCOSE 40% GEL 15 GM TUBE PO PRN (08:43)
[2023-11-11] MEDS ORDERED: DEXTROSE 50% 50 ML SYRINGE IV PRN (08:43)
[2023-11-11] MEDS: INSULIN ASPART PER UNIT CHARGE SC SCH (08:58)
--- NOTE | 2023-11-11 09:34 | XRay Report ---
XR chest 1V portable, XR chest 1V portable, XR chest 1V portable CLINICAL HISTORY: intubation TECHNIQUE: Single frontal radiograph of the chest was obtained at 0110 hours, 0234 hours, and 0550 ho urs. Comparison: None available at the time of this dictation. FINDINGS: 0110 hours: No lines and tubes are seen. The cardiomediastinal silhouette is normal. Multifocal airspace opacitie s are seen. No evidence of pleural effusion or pneumothorax. 0234 hours: Interval placement of an endotracheal tube with the tip near the pauly. 0552 hours: Unchanged appearance of endotracheal tube. A right jugular venous catheter is in the mid SVC. IMPRESSION: Multifocal airspace opacities are seen compatible with pneumonia. Placement of endotracheal tube and jugular venous catheter in satisfactory position as above. ACT 112: Negative or not required by law. Electronically signed by: Prasanth Hernandez M.D. 11/11/2023 9:32 AM
--- NOTE | 2023-11-11 09:49 | Pharmacy Report ---
Pharmacy PK ABX Note - Date of Service November 11, 2023 - Assessment and Plan Assessment 48 year old F receiving Vancomycin and Zosyn for treatment of pulmonary infection. * Day #1 of antimicrobial therapy. * Intubated, sedated and paralyzed in ED. Flu A positive. Only one blood culture showing up in eMAR? * Procal pending. Patient febrile. Plan Vancomycin * Loading dose: 2000 mg IV x 1 * Maintenance dose: 1000 mg IV every 24 hours * Regimen is predicted to achieve target AUC/TANESHA of 400-600 mg/L.hr * Level will be ordered in 48-72 hours if vanc continues. Zosyn * 4.5 g IV every 8 hours Pharmacy will continue to follow and will adjust dose/frequency as necessary. Thank you. Pharmacy has transitioned to AUC monitoring for vancomycin. AUC/TANESHA is the preferred PK/PD target and is associated with decreased risk of nephrotoxicity compared to traditional trough targets.
[2023-11-11] MEDS: LACTATED RINGER'S 2,000 ML IV ONE (09:52)
[2023-11-11] MEDS: PIPERACILLIN/TAZOBACTAM 4.5 GM in DEXTROSE 5% MINI-B 100 ML IV SCH (10:17)
[2023-11-11 10:53] LABS: iSTAT Art Bld Gas pCO2 Correct 57 mmHg (35-46); iSTAT Art Bld Gas pH Corrected 7.168 (7.35-7.45); iSTAT Arterial Blood Gas HCO3 21 meg/L (19-24); iSTAT Arterial Blood Gas pCO2 55 mmHg (35-46); iSTAT Arterial Blood Gas pH 7.18 (7.35-7.45); iSTAT Arterial Blood Gas pO2 64 mmHg (80-95); iSTAT Arterial Blood Gas pO2 C 67; iSTAT Carbon Dioxide 22 mmol/L (24-31); iSTAT FiO2 90 %; iSTAT Hematocrit 39 % (37-47); iSTAT Hemoglobin 13.3 g/dl (12.0-16.0); iSTAT Potassium 3.7 mmol/L (3.3-5.0); iSTAT Site Art Line; iSTAT Sodium 122 mmol/L (135-144)
[2023-11-11] MEDS ORDERED: OSELTAMIVIR PHOSPHATE 75 MG CAP PO SCH (11:00)
[2023-11-11] MEDS: HEPARIN SOD 5,000 UNIT/0.5 ML VIAL SQ SCH (11:20)
[2023-11-11] MEDS: OSELTAMIVIR PHOSPHATE SUSP 30 MG/5 ML UDP PO SCH (11:26)
[2023-11-11] MEDS: PANTOprazole 40 MG in SYRINGE 0 ML IV SCH (11:27)
[2023-11-11] MEDS ORDERED: INSULIN ASPART PER UNIT CHARGE SC SCH (11:30)
[2023-11-11 11:46] LABS: Albumin Globulin Ratio 1.1 (0.9-2); Albumin Level 2.3 gm/dl (3.4-5.0); BUN Creatinine Ratio 12.1 (10-20); Calcium 6.5 mg/dl (8.6-10.3); Creatinine Clr Calc Pharmacy 40.9 ml/min; Est GFR (African American) 30.8 ml/min; Est GFR (Non-African American) 26.6 ml/min; Potassium 3.8 mmol/L (3.5-5.1); Total Protein 4.3 gm/dl (6.0-8.3)
[2023-11-11 11:53] LABS: Troponin I High Sensitivity 46.6 pg/ml (0-14)
--- NOTE | 2023-11-11 12:23 | Hospitalist Progress Note ---
Date of Service November 11, 2023 Assessment & Plan (1) Septic shock: Plan: Due to underlying bilateral pneumonia. She is currently on Levophed and vasopressin for blood pressure support. Treat underlying infectious process (2) Renal insufficiency: Plan: Continue IV fluids. Monitor intake and output. Serial labs (3) Acute respiratory failure with hypoxia and hypercapnia: Plan: Currently on ventilator support. Critical care management. Wean off as tolerated. (4) Hyponatremia: Plan: Present on admission. Monitor intake and output. Serial labs (5) Bilateral pneumonia: Plan: Community-acquired. Currently on Zosyn and linezolid. Await sputum and blood culture results. Serial chest x-ray (6) Tobacco use disorder: Plan: Smoking cessation will be recommended when appropriate Plan To be determined Admission and Anticipated Discharge Date Admission Date: November 11, 2023 Subjective Intubated and sedated Review of Systems 2 Review of Systems: The patient is intubated and sedated and unable to answer any questions regarding review of systems Physical Exam 2 Physical Exam: General-intubated and sedated. No fever HEENT-head atraumatic and normocephalic. ETT and OT tubes in place Neck-no lymphadenopathy or thyromegaly, trachea midline Chest-scattered bilateral rhonchi. No wheezing Cardiac-slightly tachycardic regular rate. Normal S1 and S2. Abdomen-hypoactive bowel sounds. Nondistended. Extremities-cyanotic nailbeds. No peripheral edema. Neuro- intubated and sedated. Cannot assess Psych-intubated and sedated. Cannot assess Results & Data Results & Data Vital Signs (Past 12 Hours) Vital Signs Temp Pulse Pulse Resp BP BP Pulse Ox 11/11/23 12:00 11/11/23 11:00 37.8 C H 92 H 35 H 117/66 93 11/11/23 10:45 37.8 C H 87 35 H 95/67 L 90 11/11/23 10:43 88 11/11/23 10:40 88 32 H 91 11/11/23 10:31 37.8 C H 90 32 H 92/61 L 90 11/11/23 10:15 37.8 C H 91 H 32 H 100/82 91 11/11/23 10:00 38.2 C H 90 32 H 94/79 L 95 11/11/23 09:45 38.9 C H 99 H 32 H 116/75 95 11/11/23 09:41 39.0 C H 98 H 32 H 97/65 L 96 11/11/23 09:30 39.2 C H 108 H 32 H 88 L 11/11/23 09:15 39.3 C H 99 H 32 H 92 11/11/23 09:00 39.2 C H 99 H 32 H 92 11/11/23 08:46 92 H 32 H 92 11/11/23 08:42 39.2 C H 96 H 32 H 75/56 L 92 11/11/23 08:30 39.2 C H 93 H 32 H 91/68 L 93 11/11/23 08:23 39.1 C H 83 32 H 98/74 L 94 11/11/23 08:17 39.1 C H 89 32 H 71/59 L 94 11/11/23 08:05 32 H 11/11/23 08:00 11/11/23 08:00 39.0 C H 88 30 H 91/61 L 92 11/11/23 07:46 38.9 C H 89 31 H 119/91 94 11/11/23 07:39 38.9 C H 87 33 H 106/71 93 11/11/23 07:31 38.1 C H 84 30 H 126/91 91 11/11/23 07:30 38.9 C H 84 32 H 90 11/11/23 07:15 38.9 C H 86 31 H 103/61 92 11/11/23 07:00 38.9 C H 83 33 H 104/66 11/11/23 07:00 84 28 H 94 11/11/23 06:58 30 H 11/11/23 06:40 82 29 H 11/11/23 06:35 81 29 H 78 L 11/11/23 06:35 85/61 L 11/11/23 06:31 76/54 L 11/11/23 06:31 80 29 H 84 L 11/11/23 06:30 80 29 H 76 L 11/11/23 06:20 80 30 H 90 11/11/23 06:15 99/64 L 11/11/23 06:15 79 28 H 92 11/11/23 06:10 79 30 H 11/11/23 06:00 82/64 L 11/11/23 06:00 81 29 H 89 L 11/11/23 05:50 82 28 H 91 11/11/23 05:46 83 30 H 92 11/11/23 05:46 82/55 L 11/11/23 05:40 83 28 H 90 11/11/23 05:31 82 29 H 92 11/11/23 05:31 126/91 11/11/23 05:30 87 32 H 91 11/11/23 05:20 84 30 H 91 11/11/23 05:13 84 31 H 91 11/11/23 05:10 86 32 H 92 11/11/23 05:08 83 30 H 91 11/11/23 04:05 87/54 L 11/11/23 04:05 86 30 H 90 11/11/23 04:00 86 16 90 11/11/23 04:00 98/73 L 11/11/23 03:57 122/84 11/11/23 03:57 97 H 31 H 89 L 11/11/23 03:50 86 31 H 92 11/11/23 03:50 87/56 L 11/11/23 03:45 117/65 11/11/23 03:45 88 30 H 91 11/11/23 03:41 118/76 11/11/23 03:41 93 H 28 H 93 11/11/23 03:40 90 33 H 92 11/11/23 03:35 97 H 31 H 148/91 H 93 11/11/23 03:30 93 H 30 H 131/81 95 11/11/23 03:27 92 H 35 H 108/85 96 11/11/23 03:22 90 35 H 96 11/11/23 03:21 90 30 H 97/80 L 97 11/11/23 03:16 88 35 H 111/79 96 11/11/23 03:11 87 35 H 113/72 92 11/11/23 03:02 88 29 H 91/62 L 95 11/11/23 02:21 90 28 H 211/144 H 88 L 11/11/23 01:43 88 35 H 96 11/11/23 01:32 84 24 124/95 96 11/11/23 01:20 88 24 105/75 92 11/11/23 00:51 88 24 86/59 L 11/11/23 00:51 86 L 11/11/23 00:51 04/06/24 00:51 94 11/11/23 00:51 36.4 C L 84 24 86/59 L 94 11/11/23 00:50 84 O2 Del Method O2 Flow Rate FiO2 11/11/23 12:00 90 11/11/23 11:00 Mechanical Vent 90 11/11/23 10:45 Mechanical Vent 90 11/11/23 10:43 11/11/23 10:40 90 11/11/23 10:31 Mechanical Vent 90 11/11/23 10:15 Mechanical Vent 90 11/11/23 10:00 Mechanical Vent 90 11/11/23 09:45 Mechanical Vent 90 11/11/23 09:41 Mechanical Vent 90 11/11/23 09:30 Mechanical Vent 90 11/11/23 09:15 Mechanical Vent 90 11/11/23 09:00 Mechanical Vent 90 11/11/23 08:46 Mechanical Vent 90 11/11/23 08:42 Mechanical Vent 90 11/11/23 08:30 Mechanical Vent 90 11/11/23 08:23 Mechanical Vent 90 11/11/23 08:17 Mechanical Vent 90 11/11/23 08:05 11/11/23 08:00 90 11/11/23 08:00 Mechanical Vent 90 11/11/23 07:46 Mechanical Vent 90 11/11/23 07:39 Mechanical Vent 90 11/11/23 07:31 Mechanical Vent 11/11/23 07:30 Mechanical Vent 90 11/11/23 07:15 Mechanical Vent 90 11/11/23 07:00 11/11/23 07:00 90 11/11/23 06:58 11/11/23 06:40 11/11/23 06:35 11/11/23 06:35 11/11/23 06:31 11/11/23 06:31 11/11/23 06:30 11/11/23 06:20 11/11/23 06:15 11/11/23 06:15 11/11/23 06:10 11/11/23 06:00 11/11/23 06:00 11/11/23 05:50 11/11/23 05:46 11/11/23 05:46 11/11/23 05:40 11/11/23 05:31 11/11/23 05:31 11/11/23 05:30 11/11/23 05:20 11/11/23 05:13 90 11/11/23 05:10 11/11/23 05:08 11/11/23 04:05 11/11/23 04:05 11/11/23 04:00 11/11/23 04:00 11/11/23 03:57 11/11/23 03:57 11/11/23 03:50 11/11/23 03:50 11/11/23 03:45 11/11/23 03:45 11/11/23 03:41 11/11/23 03:41 11/11/23 03:40 11/11/23 03:35 Mechanical Vent 11/11/23 03:30 Mechanical Vent 11/11/23 03:27 Mechanical Vent 11/11/23 03:22 80 11/11/23 03:21 Mechanical Vent 11/11/23 03:16 Mechanical Vent 11/11/23 03:11 Mechanical Vent 11/11/23 03:02 Mechanical Vent 11/11/23 02:21 BiPAP 11/11/23 01:43 50 11/11/23 01:32 BiPAP 11/11/23 01:20 Nasal Cannula 5 11/11/23 00:51 11/11/23 00:51 Room Air 11/11/23 00:51 Nasal Cannula 5 11/11/23 00:51 Nasal Cannula 5 11/11/23 00:51 Nasal Cannula 5 11/11/23 00:50 Laboratory Results 11/11/23 06:02 11/11/23 10:50 PG Care Time/CCT Total # of Minutes Spent Total Time Spent with Patient: Total time spent is greater than 50% in coordination of care (as documented) at patient's floor/unit and/or counseling patient: Coding Level of Care Code 15340 SUB INP/OBS CARE 3/50MIN Diagnoses Septic shock A41.9; R65.21 Renal insufficiency N28.9 Acute respiratory failure with hypoxia and hypercapnia J96.01; J96.02 Hyponatremia E87.1 Bilateral pneumonia J18.9 Tobacco use disorder F17.200
--- NOTE | 2023-11-11 15:01 | Discharge Summary ---
Date of Service November 11, 2023 Admission HPI Per Admitting Provider The patient is a 48-year-old female with unknown past medical history including hepatitis B, recent weight loss, and significant tobacco use disorder, who presents to the emergency department with worsening shortness of breath, dyspnea exertion and cough. She was noted to be hypotensive, and was given a liter of IV fluids, with improved blood pressures. In the emergency department she was initially noted to be septic appearing, was placed on BiPAP, given 200 mL of additional fluids, and the patient subsequently became hypotensive, hypoxic, and required emergent intubation. Chest x-ray shows significant bilateral infiltrates, with possible underlying malignancy, and fluid overload. Pressure emergency department did drop to 71/50, and after receiving initial dosing of Levophed infusion, systolic blood pressure was maintained in the low 100s Principal Diagnosis Septic shock, bilateral pneumonia, acute hypoxic respiratory failure, troponin elevation, acute kidney injury Discharge Exam General-intubated and sedated. No fever HEENT-head atraumatic and normocephalic. ETT and OT tubes in place Neck-no lymphadenopathy or thyromegaly, trachea midline Chest-scattered bilateral rhonchi. No wheezing Cardiac-slightly tachycardic regular rate. Normal S1 and S2. Abdomen-hypoactive bowel sounds. Nondistended. Extremities-cyanotic nailbeds. No peripheral edema. Neuro- intubated and sedated. Cannot assess Psych-intubated and sedated. Cannot assess Discharge Data Allergies Allergy/AdvReac Type Severity Reaction Status Date / Time egg Allergy Mild Rash Verified 11/11/23 06:45 erythromycin base Allergy Unknown Unknown Verified 11/11/23 05:11 turkey AdvReac Unknown Verified 11/11/23 06:46 Consultations 11/11/23 03:01 ED Decision to Admit Stat 11/11/23 04:38 Consult Sign Painter Apprentice Routine 11/11/23 14:24 Burn CD for patient Stat Ordered Studies 11/11/23 03:07 CT abd pelvis IV con only Stat CT head/brain wo con Stat 11/11/23 03:24 CT angio chest PE protocol Stat 11/11/23 05:26 US point of care ultrasound Routine Hospital Course (1) Septic shock: Due to underlying bilateral pneumonia. She is currently on Levophed and vasopressin for blood pressure support. Treat underlying infectious process (2) Renal insufficiency: Continue IV fluids. Monitor intake and output. Serial labs (3) Acute respiratory failure with hypoxia and hypercapnia: Currently on ventilator support. Critical care management. Wean off as tolerated. (4) Hyponatremia: Present on admission. Monitor intake and output. Serial labs (5) Bilateral pneumonia: Community-acquired. Currently on Zosyn and linezolid. Await sputum and blood culture results. Serial chest x-ray (6) Tobacco use disorder: Smoking cessation will be recommended when appropriate Plan Sign Painter Apprentice has made arrangements for transfer to [facility] ICU for tertiary care and possible ECMO Total Time Total Time Spent Total Time Spent (In Minutes): 50 minutes Discharge Plan Discharge Items Patient Disposition: Transfer Acute Care Hospital Reason For Visit: ACUTE RESP FAILURE REQUIRING INTUBATION Discharge Diagnosis: Septic shock, acute hypoxic respiratory failure, bilateral pneumonia, acute kidney injury Activity: As commented below Activity Comment: Bedrest Non-emergency contact: Primary Care Provider Call non-emergency contact if: your symptoms worsen Follow-up/Referrals: PCP,NO [Primary Care Provider] - Diet: Nothing by Mouth Addtl Attending Provider Instructions: See primary care provider soon as possible after discharge from [facility] Pending Studies at Discharge: No Stand-[facility]one [facility] Patient informed of condition?: Yes DNR: No Discharge Level of Care: Other Communicable Disease: No Discharge Prognosis: Other Lines: Peripheral IV Urinary Catheter: Yes Medications and DC Order Prescriptions: Continued oxcarbazepine [Trileptal] 150 mg Tablet See Rx Instructions .ROUTE .COMPLEX Rx Instructions: Take 150mg w/ 300mg to equal 450mg by mouth twice daily. Start Date 11/04/23 - End Date 12/03/23 sennosides [Senokot] 8.6 mg Tablet 8.6 mg PO DAILY MDD 8.6mg PRN (Reason: Constipation) Rx Instructions: Start Date 11/03/23 - End Date 12/02/23 haloperidol 5 mg Tablet See Rx Instructions .ROUTE .COMPLEX Rx Instructions: Take 5mg by mouth in the morning and 15mg by mouth at bedtime. Start Date 11/06/23 - End Date 12/05/23 nicotine (polacrilex) 2 mg Gum 4 mg BUCCAL 6XD MDD 24mg PRN (Reason: Smoking Cessation) Rx Instructions: Start Date 11/03/23 - End Date 12/02/23 potassium chloride 10 mEq Tablet Extended Release 20 meq PO QAM Rx Instructions: Start Date 11/04/23 - End Date 12/03/23 oxcarbazepine [Trileptal] 300 mg Tablet See Rx Instructions .ROUTE .COMPLEX Rx Instructions: Take 300mg w/ 150mg to equal 450mg by mouth twice daily. Start Date 11/04/23 - End Date 12/03/23 dextromethorphan-guaifenesin [Robitussin-DM] 10-100 mg/5 mL Syrup 10 ml PO BID Rx Instructions: Start Date 11/10/23 - End Date 11/12/23 baclofen 10 mg tablet 10 mg PO DAILY PRN (Reason: Stiff Muscles) haloperidol 10 mg tablet 10 mg PO BID MDD 20mg PRN (Reason: Psychosis) Rx Instructions: Start Date 11/03/23 - End Date 12/02/23 pseudoephedrine HCl [Sudafed] 30 mg Tablet 60 mg PO BID PRN (Reason: Congestion) Rx Instructions: Start Date 11/10/23 - End Date 11/12/23 calcium carbonate [Tums 500] 500 mg calcium (1,250 mg) Tablet,Chewable 1,000 mg PO TID MDD 3000 mg PRN (Reason: gastric distress) Rx Instructions: Start Date 11/03/23 - End Date 11/29/23 furosemide 20 mg Tablet 0 mg PO QAM Rx Instructions: Listed on med list as ending on 11/10/23, however potassium is still listed as continuing w/ lasix. Not sure if this should be continued or not as not actually discontinued on med list from [facility]. Start Date 11/04/23 - End Date 11/10/23 metoprolol succinate 25 mg Tablet Extended Release 24 Hr 50 mg PO QAM Rx Instructions: Start Date 11/04/23 - End Date 12/03/23 albuterol sulfate 90 mcg/actuation Hfa Aerosol Inhaler 2 puff INHALATION Q6H PRN (Reason: Shortness Of Breath Or Wheezing) naproxen 500 mg tablet 500 mg PO BID MDD 1000mg PRN (Reason: Pain) Rx Instructions: Start Date 11/03/23 - End Date 12/02/23 amoxicillin-pot clavulanate [Augmentin] 875-125 mg Tablet 1 tab PO BID Rx Instructions: Start Date 11/10/23 - End Date 11/15/23 cholecalciferol (vitamin D3) 25 mcg (1,000 unit) Tablet 50 mcg PO QAM Rx Instructions: Start Date 11/08/23 - End Date 12/07/23 Discharge Orders: Discharge Order (Routine); Ordered 11/11/23 Ordered By: Harris Gomez Admission Data Admit Date/Time: 11/11/23 02:51 Attending Provider: Harris Gomez Admit Provider: Neeraj Michael Primary Care Provider: PCP,NO Other Providers: Neeraj Michael; Kai Bautista Coding Level of Care Code 43088 INP/OBS DISCH >30 MIN Diagnoses Septic shock A41.9; R65.21 Renal insufficiency N28.9 Acute respiratory failure with hypoxia and hypercapnia J96.01; J96.02 Hyponatremia E87.1 Bilateral pneumonia J18.9 Tobacco use disorder F17.200
[2023-11-11 15:05] LABS: iSTAT Art Bld Gas pCO2 Correct 67 mmHg (35-46); iSTAT Art Bld Gas pH Corrected 7.102 (7.35-7.45); iSTAT Arterial Blood Gas HCO3 20 meg/L (19-24); iSTAT Arterial Blood Gas pCO2 63 mmHg (35-46); iSTAT Arterial Blood Gas pH 7.12 (7.35-7.45); iSTAT Arterial Blood Gas pO2 72 mmHg (80-95); iSTAT Arterial Blood Gas pO2 C 79; iSTAT Carbon Dioxide 22 mmol/L (24-31); iSTAT FiO2 90 %; iSTAT Hematocrit 45 % (37-47); iSTAT Hemoglobin 15.3 g/dl (12.0-16.0); iSTAT Potassium 3.9 mmol/L (3.3-5.0); iSTAT Site Art Line; iSTAT Sodium 121 mmol/L (135-144)
[2023-11-11] MEDS ORDERED: fentaNYL citrate PF 100 MCG/2 ML VIAL IV ONE (16:48)
[2023-11-11] MEDS ORDERED: ETOMIDATE 2 MG/ML 20 ML VIAL IV ONE (16:48)
[2023-11-11] MEDS ORDERED: MIDAZOLAM HCL 5 MG/ML 2ML VIAL IV ONE (16:48)
[2023-11-11] MEDS ORDERED: SUCCINYLCHOLINE CHLORIDE 20 MG/ML 10 ML VIAL IV ONE (16:48)
--- NOTE | 2023-11-11 17:29 | XCELERA ---
[id number] \\[id number]
[2023-11-11] MEDS ORDERED: HEPARIN SOD 5,000 UNIT/0.5 ML VIAL SQ SCH (21:00)
[2023-11-11 23:12] LABS: A calco-baum cmplx NotReported Not Detected (NotDetected); Bact fragilis Not Reported Not Detected (NotDetected); Blood Culture Id Panel See PCR Comment (NotDetected); C auris Not Reported Not Detected (NotDetected); Calbicans Not Reported Not Detected (NotDetected); Candida glabrata Not Reported Not Detected (NotDetected); Candida krusei Not Reported Not Detected (NotDetected); Cneoformans/gatti Not Reported Not Detected (NotDetected); Cparapsilosis Not Reported Not Detected (NotDetected); E cloacae compx Not Reported Not Detected (NotDetected); Efaecalis Not Reported Not Detected (NotDetected); Efaecium Not Reported Not Detected (NotDetected); Enterobacterales Not Reported Not Detected (NotDetected); Escherichia coli Not Reported Not Detected (NotDetected); H influenzae Not Reported Not Detected (NotDetected); K aerogenes Not Reported Not Detected (NotDetected); Koxytoca Not Reported Not Detected (NotDetected); Kpneumoniae grp Not Reported Not Detected (NotDetected); Lmonocyt Not Reported Not Detected (NotDetected); N meningitidis Not Reported Not Detected (NotDetected); P aeruginosa Not Reported Not Detected (NotDetected); Proteus spp Not Reported Not Detected (NotDetected); Salmonella spp Not Reported Not Detected (NotDetected); Smarcescens Not Reported Not Detected (NotDetected); Staph lugdunensis Not Reported Not Detected (NotDetected); Staph spp. Not Reported DETECTED (NotDetected); Staphaureus Not Reported DETECTED (NotDetected); Staphepi Not Reported Not Detected (NotDetected); Staphylococcus spp. DETECTED (NotDetected); Stenmaltophilia Not Reported Not Detected (NotDetected); Strep agal(GrpB) Not Reported Not Detected (NotDetected); Strep pneum Not Reported Not Detected (NotDetected); Strep pyog (GrpA) Not Reported Not Detected (NotDetected); Strep spp Not Reported Not Detected (NotDetected)
[2023-11-11 23:29] LABS: mecAC+MREJ Resistant Gene MRSA DETECTED (NotDetected)
[2023-11-12] MEDS ORDERED: VANCOMYCIN HCL 1,000 MG in SODIUM CHLORIDE 0.9% 250 ML IV SCH (08:00)
[2023-11-14 12:12] LABS: HBSAG NON-REACTIVE (NON-REACTIVE); HIV 1 RNA PCR Copies/ML NOT DETECTED copies/mL (NOT DETECTED); HIV-1 RNA Log Copies/mL NOT DETECTED (NOT DETECTED); Hepatitis A Antibody IgM NON-REACTIVE (NON-REACTIVE); Hepatitis B Core Antibody IgM NON-REACTIVE (NON-REACTIVE)
== END 2023-11-11 16:49 | disposition short-term general hospital (02) | DRG 871 ==
LOC: ED 00:42 → SUATTDRO 02:51 → 1E 02:51